=== PATIENT | male | born 1990 | race Two or more races ===

== ENCOUNTER 2024-07-09 13:52 | Emergency (ER) | payer SELFPAY ==
[2024-07-09 14:00] VITALS: BP 109/71; PULSE 99; RESP 20; TEMP 100.4; BMI 25.8
[2024-07-09] MEDS ORDERED: ACETAMINOPHEN 500 MG TABLET (FP) ONE (15:47)
[2024-07-09] MEDS: ACETAMINOPHEN 500 MG TABLET (FP) PO ONE (15:48)
[2024-07-09 16:27] LABS: THROAT:GRP A STREP NOT DETECTED (NOTDETECTED)
== END 2024-07-09 17:30 | disposition home or self-care (01) ==
LOC: JERFT 13:52
CPT/HCPCS: 0241U-QW; 82962; 87651; 99284-25